=== PATIENT | male | born 1950 | race African-American/Black ===

== ENCOUNTER → 2019-06-05 | Outpatient (CLI) | payer OTHER ==
[~2019-06-05] MED LIST: AMARYL4 MG PO; BYSTOLIC10 MG PO; COLCRYS 0.6 MG0.6 MG PO; COUMADIN 5 MG TA5 M1 PO; COZAAR100 MG PO; FLEXERIL PO; JANUVIA100 MG PO; NORCO 5-325 TA1 EACH PO; PROSCAR 5MG TABL5 M1 PO; SIMVASTATIN20 MG PO; TAMSULOSIN HCL0.4 MG PO
== END | disposition home or self-care (01) ==
LOC: SJCVCIMAG 09:06
DX: E11.51 Type 2 diabetes mellitus with diabetic peripheral angiopathy without gangrene (principal); I70.203 Unspecified atherosclerosis of native arteries of extremities, bilateral legs; L97.828 Non-pressure chronic ulcer of other part of left lower leg with other specified severity; L97.508 Non-pressure chronic ulcer of other part of unspecified foot with other specified severity; I99.8 Other disorder of circulatory system; M79.89 Other specified soft tissue disorders